=== PATIENT | female | born 1980 | race Hispanic/Latino ===

== ENCOUNTER 2018-08-09 15:42 | Emergency (ER) | payer OTHER ==
[2018-08-09 18:24] LABS: CREATININE 0.7 mg/dL (0.5-1.5); POTASSIUM 3.6 mmol/L (3.5-5.1)
[2018-08-09 18:31] LABS: ALBUMIN 2.7 g/dL (3.5-5.0); BILIRUBIN,DIRECT 0.1 mg/dL (0.0-0.3); BILIRUBIN,TOTAL 0.3 mg/dL (0.2-1.0); TOTAL PROTEIN, SERUM 6.1 g/dL (6.0-8.3)
[2018-08-09 18:34] LABS: BASOPHILS % (AUTO) 0.6 % (0.0-5.0); EOSINOPHILS % (AUTO) 3.3 % (0.0-8.0); HEMATOCRIT 28.7 % (36-48); LYMPHOCYTES % (AUTO) 34.6 % (21.0-51.0); MEAN CORPUSCULAR HEMOGLOBIN 29.9 pg (27.0-33.0); MEAN CORPUSCULAR HGB CONC 33.9 g/dL (32.0-36.0); MEAN CORPUSCULAR VOLUME 88.1 fL (79-99); MONOCYTES % (AUTO) 11.6 % (3.0-13.0); NEUTROPHILS % (AUTO) 49.9 % (40.0-77.0); PLATELET COUNT (AUTO) 167 K/uL (130-400); RED BLOOD CELL COUNT(AUTO) 3.25 MIL/uL (4.00-5.50); RED CELL DISTRIBUTION WIDTH 13.8 % (11.0-15.5); WHITE BLOOD COUNT (AUTO) 5.4 K/uL (4.8-10.8)
[2018-08-09 19:01] LABS: INR 0.95 (0.85-1.15); PARTIAL THROMBOPLASTIN TIME 26.2 SEC (26.3-35.5)
[2018-08-09 19:17] LABS: B-TYPE NATRIURETIC PEPTIDE 46 pg/mL (0-100)
== END 2018-08-09 19:51 | disposition home or self-care (01) ==
LOC: EDH 15:42
DX: R60.0 Localized edema (principal); Z48.01 Encounter for change or removal of surgical wound dressing; M19.90 Unspecified osteoarthritis, unspecified site; Z90.710 Acquired absence of both cervix and uterus; Z98.890 Other specified postprocedural states; Z86.718 Personal history of other venous thrombosis and embolism
CPT/HCPCS: 36415; 80048; 80076; 83880; 84484; 85025; 85610; 85730; 93005; 93970

== ENCOUNTER 2020-04-05 17:50 | Emergency (ER) | payer OTHER ==
[~2020-04-05 17:50] MED LIST: ADAL40KI SQ
[2020-04-05 18:49] LABS: BASOPHILS % (AUTO) 0.6 % (0.0-5.0); EOSINOPHILS % (AUTO) 1.7 % (0.0-8.0); HEMATOCRIT 40.4 % (36-48); LYMPHOCYTES % (AUTO) 36.2 % (21.0-51.0); MEAN CORPUSCULAR HEMOGLOBIN 28.6 pg (27.0-33.0); MEAN CORPUSCULAR HGB CONC 33.4 g/dL (32.0-36.0); MEAN CORPUSCULAR VOLUME 85.6 fL (79-99); MONOCYTES % (AUTO) 6.2 % (3.0-13.0); NEUTROPHILS % (AUTO) 55.1 % (40.0-77.0); PLATELET COUNT (AUTO) 242 K/uL (130-400); RED BLOOD CELL COUNT(AUTO) 4.72 MIL/uL (4.00-5.50); RED CELL DISTRIBUTION WIDTH 12.8 % (11.0-15.5); WHITE BLOOD COUNT (AUTO) 5.4 K/uL (4.8-10.8)
[2020-04-05 19:11] LABS: CREATININE 0.8 mg/dL (0.5-1.5); POTASSIUM 3.6 mmol/L (3.5-5.1)
== END 2020-04-05 19:58 | disposition home or self-care (01) ==
LOC: EDH 17:50 → MERGE 17:50 → EDH 19:58
DX: R60.0 Localized edema (principal); M06.9 Rheumatoid arthritis, unspecified; Z86.718 Personal history of other venous thrombosis and embolism; Z98.890 Other specified postprocedural states; Z90.710 Acquired absence of both cervix and uterus
CPT/HCPCS: 36415; 80048; 85025; 85378; 93971

== ENCOUNTER → 2021-02-20 | Outpatient (CLI) | payer OTHER | END | disposition home or self-care (01) | LOC: RAH 15:08 | PROVIDERS: ATTEND Internal Medicine | DX: R59.0 Localized enlarged lymph nodes (principal) | CPT/HCPCS: 70490 ==

== ENCOUNTER 2023-01-26 18:53 | Emergency (ER) | payer OTHER ==
[~2023-01-26] VITALS: Ht 162.6 cm; Wt 54.4 kg
[2023-01-26 20:03] VITALS: BP 129/77
[2023-01-26] MEDS ORDERED: OSEL75 PO (21:26)
[2023-01-26] MEDS ORDERED: DEXAMETHASONE SOD PHOSPHATE 4 MG/ML 1ML VIAL IM SCH (21:30)
== END 2023-01-26 21:48 | disposition home or self-care (01) ==
LOC: EDH 18:53
DX: J10.1 Influenza due to other identified influenza virus with other respiratory manifestations (principal); Z20.822 Contact with and (suspected) exposure to COVID-19
CPT/HCPCS: 99283; 87635; 87880; 87804 ×2; 96372; J1100; C9803

== ENCOUNTER 2023-07-09 19:47 | Emergency (ER) | payer OTHER ==
[~2023-07-09] VITALS: Ht 154.9 cm; Wt 51.7 kg
[~2023-07-09 19:47] MED LIST changes: +OSEL75 PO
[2023-07-09 20:40] VITALS: BP 125/75; PULSE 69; RESP 18; O2SAT 100
[2023-07-09 21:13] LABS: BASOPHILS # (AUTO) 0.05 K/uL (0.00-0.20); EOSINOPHILS # (AUTO) 0.07 K/uL (0.00-0.70); EOSINOPHILS % (AUTO) 1.3 % (0.0-8.0); HEMATOCRIT 41.1 % (36-48); IMMATURE GRANULOCYTE ABSOLUTE 0.01 K/uL (0-1); LYMPHOCYTES # (AUTO) 2.3 K/uL (1.0-4.8); LYMPHOCYTES % (AUTO) 43.5 % (21.0-51.0); MEAN CORPUSCULAR HEMOGLOBIN 28.8 pg (27.0-33.0); MEAN CORPUSCULAR HGB CONC 33.1 g/dL (32.0-36.0); MEAN CORPUSCULAR VOLUME 87.1 fL (79-99); MONOCYTES # (AUTO) 0.4 K/uL (0.1-1.0); MONOCYTES % (AUTO) 7.2 % (3.0-13.0); NEUTROPHILS # (AUTO) 2.5 K/uL (1.8-7.7); NEUTROPHILS % (AUTO) 46.8 % (40.0-77.0); PLATELET COUNT (AUTO) 237 K/uL (130-400); RED BLOOD CELL COUNT(AUTO) 4.72 MIL/uL (4.00-5.50); RED CELL DISTRIBUTION WIDTH 13.1 % (11.0-15.5); WHITE BLOOD COUNT (AUTO) 5.3 K/uL (4.8-10.8)
[2023-07-09 21:15] LABS: APPEARANCE,URINE CLEAR (CLEAR); BILIRUBIN,URINE NEGATIVE (NEGATIVE); COLOR,URINE LIGHT-YELLOW (YELLOW); GLUCOSE, URINE (UA) NEGATIVE (NEGATIVE); KETONES,URINE 10 mg/dL (NEGATIVE); LEUKOCYTE ESTERASE ,URINE NEGATIVE Leu/uL (NEGATIVE); NITRATE,URINE NEGATIVE (NEGATIVE); OCCULT BLOOD,URINE NEGATIVE (NEGATIVE); PH,URINE 6.5 (5.0-8.0); PROTEIN,URINE NEGATIVE (NEGATIVE)
[2023-07-09 21:16] LABS: ADD UA MICROSCOPIC YES
[2023-07-09 21:17] LABS: MUCUS,URINE RARE LPF (None Seen); SQUAMOUS EPITHELIAL CELL,UR RARE /HPF (0-2)
[2023-07-09 21:23] LABS: CREATININE 0.7 mg/dL (0.5-1.5); POTASSIUM 3.6 mmol/L (3.5-5.1)
[2023-07-09 21:28] LABS: ALBUMIN 4.1 g/dL (3.5-5.0); BILIRUBIN,TOTAL 0.7 mg/dL (0.2-1.0); TOTAL PROTEIN, SERUM 7.8 g/dL (6.0-8.3)
[2023-07-09] MEDS ORDERED: KETOROLAC 30MG VIAL (30MG/ML) IVP ONE (22:00)
[2023-07-09] MEDS ORDERED: ORPHENADRINE CITRATE 30 MG/ML ML IVP ONE (22:00)
[2023-07-09] MEDS ORDERED: IBUP-2070 PO (23:35)
[2023-07-09] MEDS ORDERED: CYCL-309 PO (23:35)
== END 2023-07-09 23:52 | disposition home or self-care (01) ==
LOC: EDH 19:47
DX: M62.838 Other muscle spasm (principal); M19.90 Unspecified osteoarthritis, unspecified site; Z90.710 Acquired absence of both cervix and uterus; Z79.899 Other long term (current) drug therapy; Z98.890 Other specified postprocedural states
CPT/HCPCS: 99284; 96374; 96375; 80053; 85025; 81001; 36415; J1885; J2360

== ENCOUNTER 2024-01-19 18:20 | Emergency (ER) | payer OTHER ==
[~2024-01-19] VITALS: Ht 154.9 cm; Wt 51.3 kg
[~2024-01-19 18:20] MED LIST changes: +CYCL-309 PO; +IBUP-2070 PO
[2024-01-19 18:40] LABS: ADD UA MICROSCOPIC YES; APPEARANCE,URINE CLOUDY (CLEAR); BILIRUBIN,URINE NEGATIVE (NEGATIVE); COLOR,URINE LIGHT-YELLOW (YELLOW); GLUCOSE, URINE (UA) NEGATIVE (NEGATIVE); KETONES,URINE NEGATIVE (NEGATIVE); LEUKOCYTE ESTERASE ,URINE 500 Leu/uL (NEGATIVE); NITRATE,URINE NEGATIVE (NEGATIVE); OCCULT BLOOD,URINE SMALL (NEGATIVE); PH,URINE 5.5 (5.0-8.0); PROTEIN,URINE 20 mg/dL (NEGATIVE); UROBILINOGEN,URINE 0.2 mg/dL (0.2-1.0)
[2024-01-19 18:53] LABS: BACTERIA,URINE FEW /HPF (None Seen); MUCUS,URINE RARE LPF (None Seen); NON-SQUAMOUS EPITHELIAL CELL 2 /HPF (0-2); SQUAMOUS EPITHELIAL CELL,UR RARE /HPF (0-2); UNCLASSIFIED CRYSTAL 2 /HPF (None Seen); WBC CLUMP FEW /HPF (0-1); WBC,URINE >100 /HPF (0-1)
[2024-01-19] MEDS ORDERED: AMOX1TAB16 PO (19:40)
[2024-01-19] MEDS ORDERED: IBUP-2070 PO (19:40)
[2024-01-19] MEDS ORDERED: PHEN-847 PO (19:40)
[2024-01-19 21:07] VITALS: BP 124/74; PULSE 77; RESP 18; O2SAT 100
[2024-01-19] MEDS: ACETAMINOPHEN 500 MG TABLET PO ONE (21:11)
[2024-01-19] MEDS: CEFTRIAXONE 1G VIAL IM ONE (21:11)
[2024-01-19] MEDS: PHENAZOPYRIDINE HCL 200 MG TABLET PO ONE (21:11)
== END 2024-01-19 21:20 | disposition home or self-care (01) ==
LOC: EDH 18:20
DX: N30.01 Acute cystitis with hematuria (principal); M19.90 Unspecified osteoarthritis, unspecified site; Z79.899 Other long term (current) drug therapy; Z90.710 Acquired absence of both cervix and uterus; Z98.890 Other specified postprocedural states
CPT/HCPCS: 99283; 87077; 87088; 87186; 81001; 96372; J0696

== ENCOUNTER → 2024-04-19 | Outpatient (CLI) | payer OTHER ==
[~2024-04-19] MED LIST changes: +AMOX1TAB16 PO; +PHEN-847 PO
== END | disposition home or self-care (01) ==
LOC: RAH 08:39
PROVIDERS: ATTEND Internal Medicine
DX: K82.4 Cholesterolosis of gallbladder (principal); R94.5 Abnormal results of liver function studies
CPT/HCPCS: 76700

== ENCOUNTER 2024-07-08 09:00 | Emergency (ER) | payer SELFPAY ==
[~2024-07-08] VITALS: Ht 154.9 cm; Wt 52.2 kg
[2024-07-08 09:01] VITALS: BP 120/78; PULSE 89; RESP 17; TEMP 98.4; O2SAT 100
[2024-07-08] MEDS: LIDOCAINE HCL 1% 20 ML VIAL INJ SCH (09:26)
[2024-07-08] MEDS: acetaMINOPHEN WITH coDEINE 1 TAB TAB PO ONE (09:26)
[2024-07-08] MEDS ORDERED: DOXY100T2 PO (09:27)
[2024-07-08] MEDS ORDERED: IBUP-2070 PO (09:27)
[2024-07-08] MEDS ORDERED: ACET-66 PO (09:27)
[2024-07-08] MEDS: ADENOSINE 6MG VIAL IV ONE (10:27)
[2024-07-08] MEDS ORDERED: cePHALexin 500 MG CAPSULE PO ONE (11:00)
[2024-07-08] MEDS: NEOMY SULF/BACITRA/POLYMYXIN B 1 EACH PACKET TP ONE (11:37)
== END 2024-07-08 11:56 | disposition home or self-care (01) ==
LOC: EDH 09:00
DX: S81.812A Laceration without foreign body, left lower leg, initial encounter (principal); Z79.899 Other long term (current) drug therapy; Z79.2 Long term (current) use of antibiotics; Z98.890 Other specified postprocedural states; W01.0XXA Fall on same level from slipping, tripping and stumbling without subsequent striking against object, initial encounter; Y93.39 Activity, other involving climbing, rappelling and jumping off; Y92.89 Other specified places as the place of occurrence of the external cause; Y99.8 Other external cause status
CPT/HCPCS: 12002; J0153

== ENCOUNTER 2024-07-22 11:00 | Emergency (ER) | payer SELFPAY ==
[~2024-07-22] VITALS: Ht 154.9 cm; Wt 52.2 kg
[~2024-07-22 11:00] MED LIST changes: +ACET-66 PO; +DOXY100T2 PO
== END 2024-07-22 12:16 | disposition home or self-care (01) ==
LOC: EDH 11:00
DX: S81.812D Laceration without foreign body, left lower leg, subsequent encounter (principal); Z48.02 Encounter for removal of sutures; X58.XXXD Exposure to other specified factors, subsequent encounter
CPT/HCPCS: 99282

== ENCOUNTER 2025-08-31 19:11 | Emergency (ER) | payer BC ==
[~2025-08-31] VITALS: Ht 154.9 cm; Wt 50.8 kg
[~2025-08-31 19:11] MED LIST changes: +IBUP-1492 PO; -IBUP-2070 PO
--- NOTE | 2025-08-31 19:42 | ERN ---
ED Note History of Present Illness Stated Complaint: C/O PAIN WITH BURNING WHEN VOIDING ONSET FRIDAY Chief Complaint: Painful Urination Time Seen by MD: 19:20 Dictation: 44-year-old female presents to ER complaints of urinary symptoms. Patient states has frequency and burning. Patient denies blood in urine, fever back pain Allergies: Coded Allergies: No Known Drug Allergies (Unverified Allergy, Unknown, 04/11/20) Home Meds Active Scripts Phenazopyridine HCl (Pyridium) 200 Mg Tablet, 200 MG PO TID for painful urination for 3 Days, #9 TAB 0 Refills Prov:SHAD SIM [employer]PER[employer] 08/31/25 Nitrofurantoin Macrocrystal (Macrodantin) 100 Mg Cap, 1 CAP PO BID for 7 Days, #14 CAP 0 Refills Prov:SHAD SIM SU[employer] 08/31/25 Acetaminophen (Tylenol) 500 Mg Tab, 500 MG PO Q6HPRN, #30 TAB Prov:RAHEEM CLARKE MD 07/08/24 Ibuprofen (Ibuprofen) 600 Mg Tablet, 600 MG PO Q6H PRN for PAIN, #20 TAB Prov:RAHEEM CLARKE MD 07/08/24 Doxycycline Hyclate (Doxycycline Hyclate) 100 Mg Tablet, 100 MG PO BID, #14 TAB Prov:RAHEEM CLARKE MD 07/08/24 Ibuprofen (Ibuprofen) 600 Mg Tablet, 600 MG PO Q6H PRN for PAIN, #30 TAB Prov:RICH ONEILLP 01/19/24 Phenazopyridine HCl (Pyridium) 200 Mg Tab, 200 MG PO TIDPC for 5 Days, #15 TAB TAKE WITH FOOD TO PREVENT STOMACH UPSET. Prov:RICH ONEILL [employer]PER[employer] 01/19/24 Amoxicillin/Potassium Clav (Amox Tr-K Clv 875-125 mg Tab) 875 Mg-125 Mg Tablet, 1 EACH PO BID for 7 Days, #14 TAB 0 Refills Prov:RICH ONEILL SUPER[employer] 01/19/24 Ibuprofen (Ibuprofen) 600 Mg Tablet, 600 MG PO Q6H PRN for PAIN, #30 TAB 0 Refills Prov:CARMITA PRUITT MD 07/09/23 Cyclobenzaprine HCl (Cyclobenzaprine HCl) 10 Mg Tablet, 10 MG PO TID PRN for PAIN, #15 TAB 0 Refills Prov:CARMITA PRUITT MD 07/09/23 Oseltamivir Phosphate (Tamiflu) 75 Mg Cap, 75 MG PO BID for 5 Days, #10 CAP Prov:RAY ENGLISH 01/26/23 Reported Medications Adalimumab (Humira) 40 Mg/0.8 Ml Kit, 40 MG SQ [id number], KIT 08/05/18 Past Medical History Past Medical History: Other Additional Past Medical Hx: HX OF RA Surgical History: Hysterectomy, Social History: Negative History: Not Applicable Review of System Dictation CONSTITUTIONAL: NEGATIVE FOR FEVER,CHILLS, AND WEIGHT LOSS EYES: NEGATIVE FOR INJURY, PAIN,REDNESS, AND DISCHARGE ENT: NEGATIVE FOR INJURY,PAIN OR SWELLING CARDIOVASCULAR: NEGATIVE FOR CHEST PAIN, PALPITATIONS, AND EDEMA RESPIRATORY: NEGATIVE FOR SHORTNESS OF BREATH, COUGH, WHEEZING, AND PLEURITIC CHEST PAIN ABDOMEN/GI: NEGATIVE FOR ABDOMINAL PAIN, NAUSEA, VOMITING AND DIARRHEA. BACK: NEGATIVE FOR PAIN OR INJURY : Positive pain, dysuria and frequency MS/EXTREMITY: NEGATIVE FOR INJURY AND DEFORMITY SKIN: NEGATIVE FOR RASH, AND DISCOLORATION NEURO: NEGATIVE FOR HEADACHE, WEAKNESS, NUMBNESS, TINGLING, AND SEIZURE PSYCH: NEGATIVE FOR SUICIDE IDEATION, HOMICIDAL IDEATION, AND HALLUCINATIONS ALLERGY/IMMUNOLOGY: NEGATIVE FOR HIVES, RASH, AND ALLERGIES ALL SYSTEMS NEGATIVE, EXCEPT NOTED ABOVE. 13 POINT REVIEW OF SYSTEMS ASSESSED AND ALL NEGATIVE EXCEPT FOR ABOVE. Initial Vital Sign VS Vital Signs Date Time Temp Pulse Resp B/P (MAP) Pulse Ox O2 Delivery O2 Flow Rate FiO2 08/31/25 19:14 97.5 66 18 117/74 98 Room Air 08/31/25 21:25 0 21 Physical Exam Dictation General: awake, alert, NAD Head/Face: Normocephalic, atraumatic Eyes: PERRL, EOMI, vision at baseline ENT: oral cavity clear, TMs clear, no signs of infection Neck: Trachea midline, supple, no nuchal rigidity Cardiovascular: RRR, normal no JVD Respiratory: CTAB, no respiratory distress, No rales or wheezes Abdomen: Soft, non-tender, non-distended, normal bowel sounds, no guarding or rebound. Skin: Warm, dry, normal turgor, no rash MS/Extremity: Pulses equal, no cyanosis, neurovascular intact, FROM Neuro: COAx4, GCS 15, strength 5/5, CN 2-12 intact, normal cerebellar exam, normal gait, Psych: Normal behavior, mood, and affect normal Results (Laboratory/Radiology) Laboratory/Radiology Laboratory Tests Test 08/31/25 19:24 Urine Color COLORLESS (YELLOW) Urine Appearance CLEAR (CLEAR) Urine pH 6.5 (5.0-8.0) Urine Specific Girdler 1.002 (1.001-1.031) Urine Protein NEGATIVE mg/dL (NEGATIVE) Urine Glucose (UA) NEGATIVE mg/dL (NEGATIVE) Urine Ketones NEGATIVE mg/dL (NEGATIVE) Urine Occult Blood NEGATIVE (NEGATIVE) Urine Nitrate NEGATIVE (NEGATIVE) Urine Bilirubin NEGATIVE mg/dL (NEGATIVE) Urine Urobilinogen 0.2 mg/dL (0.2-1.0) Urine Leukocyte Esterase NEGATIVE Alli/uL ED Course ED Course Orders Procedure Category Date Status Time Urinalysis Profile LAB 08/31/25 Complete 19:34 Ceftriaxone 1g Vial PHA 08/31/25 Complete (Rocephine 1g Inj) 20:00 Current Medications Medications (Trade) Dose Ordered Sig/Jayne Route PRN Reason Start Time Stop Time Status Last Admin Dose Admin Ceftriaxone Sodium (ROCEphine 1G INJ) 1 gm ONCE ONCE IM 08/31/25 20:00 08/31/25 20:01 DC 08/31/25 21:27 Vital Signs Date Time Temp Pulse Resp B/P (MAP) Pulse Ox O2 Delivery O2 Flow Rate FiO2 08/31/25 21:25 98.1 64 16 114/68 100 Room Air* 0 21 08/31/25 19:14 97.5 66 18 117/74 98 Room Air Medical Decision Making MDM MDM: Differential diagnosis: UTI, cystitis, pyelonephritis Rationale: Tests considered and ordered secondary to shared decision making include: labs, ECG and radiology Previous outside records reviewed: Old ER visits. Risk of complication and/or morbidity or mortality of patient management: None Medications-Per medication reconciliation Need for hospitalization: Patient does NOT meet criteria for hospitalization. Need for emergency major/minor surgery: No There are no social concerns with this patient. Prescription drug management Prescriptions will include symptomatic care Patient's prior external medical records from other ER visits were reviewed by me as indicated. Prior testing and results from previous visits were reviewed. Prior tests were taken into account with medical decision making and resource utilization, independent historian/historians were used to obtain complete medical history. I independently interpreted the test that were performed, results were reviewed by me and considered findings on radiology if ordered. DX & DISP Disposition: Discharge Departure Impression: Primary Impression: UTI (urinary tract infection) Additional Impression: Dysuria Condition: Stable Scripts Phenazopyridine HCl (Pyridium) 200 Mg Tablet 200 MG PO TID for painful urination for 3 Days, #9 TAB 0 Refills Prov: SHAD SIM 08/31/25 Nitrofurantoin Macrocrystal (Macrodantin) 100 Mg Cap 1 CAP PO BID for 7 Days, #14 CAP 0 Refills Prov: SHAD SIM 08/31/25 Additional Instructions: TAKE MEDICATIONS PRESCRIBED. FOLLOW-UP WITH YOUR PCP IN 24-72 HOURS AND IN THE EVENT IF SYMPTOMS WORSEN OR AN EMERGENCY OVERNIGHT REPORT TO THE ED IMMEDIATELY Referrals: CHANDLER STEVENSON (PCP) ATTESTATION BY PHYSICIAN I PERFORMED THE SUBSTANTIVE PORTION OF THE VISIT. I HAVE REVIEWED AND PERSONALLY MADE AND APPROVED THE MANAGEMENT PLAN THAT IS DOCUMENTED IN THE NOTE BY MYSELF FOR THE A PP. SHAD SIM Aug 31, 2025 19:42 JOSE CARLOS VALDIVIA MD Sep 03, 2025 07:46
[2025-08-31 20:19] LABS: APPEARANCE,URINE CLEAR (CLEAR); GLUCOSE, URINE (UA) NEGATIVE (NEGATIVE); LEUKOCYTE ESTERASE ,URINE NEGATIVE Leu/uL (NEGATIVE); NITRATE,URINE NEGATIVE (NEGATIVE); OCCULT BLOOD,URINE NEGATIVE (NEGATIVE)
[2025-08-31 20:21] LABS: ADD UA MICROSCOPIC NO
[2025-08-31] MEDS ORDERED: PHEN-776 PO (20:42)
[2025-08-31] MEDS ORDERED: NITR-166 PO (20:42)
[2025-08-31 21:25] VITALS: BP 114/68; PULSE 64; RESP 16; TEMP 98.1; O2SAT 100
== END 2025-08-31 21:49 | disposition home or self-care (01) ==
LOC: EDH 19:11
DX: N39.0 Urinary tract infection, site not specified (principal); Z90.710 Acquired absence of both cervix and uterus; Z98.890 Other specified postprocedural states; Z79.899 Other long term (current) drug therapy
CPT/HCPCS: 99284; 81003; 96372; J0696

== ENCOUNTER 2025-09-02 20:00 | Emergency (ER) | payer BC ==
[~2025-09-02] VITALS: Ht 154.9 cm; Wt 52.2 kg
[~2025-09-02 20:00] MED LIST changes: +NITR-108 PO; +PHEN-776 PO
--- NOTE | 2025-09-02 20:25 | ERN ---
General Chief Complaint: Painful Urination Stated Complaint: PAINFUL URINATION Time Seen by MD: 20:03 History of Present Illness Initial Comments Patient comes in with complaint of dysuria. She reports that she does get UTIs in the past that has been resistant. She started having dysuria for the last five days. She was seen here two days ago and did have a urine performed that looked very clear. However patient was quite sure that she was getting an infection. She was given Rocephin and put on Macrobid and azo. She still continues to have symptoms. She did not picker/puller the azo as it was not being covered by insurance so she does not like to take the necessary medicines. She has taken Macrobid but we will like Augmentin which has worked for her in the past she has history of rheumatoid arthritis and is on Humira for the last 10 years but is otherwise healthy. Allergies: Coded Allergies: No Known Drug Allergies (Unverified Allergy, Unknown, 04/11/20) Home Meds Active Scripts Phenazopyridine HCl (Pyridium) 200 Mg Tablet, 200 MG PO TID for painful urination for 3 Days, #9 TAB 0 Refills Prov:SHAD SIMP 08/31/25 Nitrofurantoin Macrocrystal (Macrodantin) 100 Mg Cap, 1 CAP PO BID for 7 Days, #14 CAP 0 Refills Prov:SHAD SIMP 08/31/25 Acetaminophen (Tylenol) 500 Mg Tab, 500 MG PO Q6HPRN, #30 TAB Prov:RAHEEM CLARKE MD 07/08/24 Ibuprofen (Ibuprofen) 600 Mg Tablet, 600 MG PO Q6H PRN for PAIN, #20 TAB Prov:RAHEEM CLARKE MD 07/08/24 Doxycycline Hyclate (Doxycycline Hyclate) 100 Mg Tablet, 100 MG PO BID, #14 TAB Prov:RAHEEM CLARKE MD 07/08/24 Ibuprofen (Ibuprofen) 600 Mg Tablet, 600 MG PO Q6H PRN for PAIN, #30 TAB Prov:RICH ONEILLP 01/19/24 Phenazopyridine HCl (Pyridium) 200 Mg Tab, 200 MG PO TIDPC for 5 Days, #15 TAB TAKE WITH FOOD TO PREVENT STOMACH UPSET. Prov:RICH ONEILL 01/19/24 Amoxicillin/Potassium Clav (Amox Tr-K Clv 875-125 mg Tab) 875 Mg-125 Mg Tablet, 1 EACH PO BID for 7 Days, #14 TAB 0 Refills Prov:RICH ONEILL [employer] JOURNEYMAN 01/19/24 Ibuprofen (Ibuprofen) 600 Mg Tablet, 600 MG PO Q6H PRN for PAIN, #30 TAB 0 Refills Prov:CARMITA PRUITT MD 07/09/23 Cyclobenzaprine HCl (Cyclobenzaprine HCl) 10 Mg Tablet, 10 MG PO TID PRN for PAIN, #15 TAB 0 Refills Prov:CARMITA PRUITT MD 07/09/23 Oseltamivir Phosphate (Tamiflu) 75 Mg Cap, 75 MG PO BID for 5 Days, #10 CAP Prov:RAY ENGLISH V [employer] B[employer] JOURNEYMAN 01/26/23 Reported Medications Adalimumab (Humira) 40 Mg/0.8 Ml Kit, 40 MG SQ [id number], KIT 08/05/18 Past Medical History Past Medical History: Arthritis, Other Medical History Other: HX OF RA Past Surgical History: Hysterectomy, Social History Social History: Negative Female( History) History: Not Applicable ROS Dictation Ten systems reviewed and negative except as noted in HPI Physical Exam Physical Exam Dictation GEN: non toxic, NAD HEENT: atrumatic, PERRL, EOMI, conjunctivae normal NECK: Soft supple nontender Heart RRR, no murmurs Chest: No deformity Lungs: Lungs clear to auscultation Ab: Soft nondistended nontender Back: No midline step-offs. No gross deformity. No CVA tenderness : m/s: Moving all four extremities. No gross deformity Neuro: CN 2-12 intact. Moving all four extremities. Psych: Cooperative Results Laboratory and Microbiology Lab and Micro Result Laboratory Tests Test 09/02/25 20:05 Urine Color LIGHT-YELLOW (YELLOW) Urine Appearance CLEAR (CLEAR) Urine pH 6.5 (5.0-8.0) Urine Specific Dante 1.012 (1.001-1.031) Urine Protein NEGATIVE mg/dL (NEGATIVE) Urine Glucose (UA) NEGATIVE mg/dL (NEGATIVE) Urine Ketones NEGATIVE mg/dL (NEGATIVE) Urine Occult Blood NEGATIVE (NEGATIVE) Urine Nitrate NEGATIVE (NEGATIVE) Urine Bilirubin NEGATIVE mg/dL (NEGATIVE) Urine Urobilinogen 0.2 mg/dL (0.2-1.0) Urine Leukocyte Esterase NEGATIVE Alli/uL Urine RBC 0-1 /HPF (0-1) Urine WBC 0-1 /HPF (0-1) Urine Squamous Epithelial Cells RARE /HPF (0-2) Urine Bacteria RARE /HPF (None Seen) Urine HCG, Qualitative NEGATIVE (NEGATIVE) Labs Reviewed?: Yes MDM Multiple differentials considered. Previous urine was clear low culture results available although patient does have a lot of dysuria. We will check urine here again although patient now has been on partial treatment. Patient does report history of some resistance in the past to Bactrim but indicated success with Augmentin which she would like. I did review urine culture from last year. It was E coli resistant to Bactrim but sensitive to everything else. I did explain the urine results from two days ago as well as today and low suspicion. In further discussing with the patient patient was actually very concerned that nitrofurantoin that she was prescribed two days ago was the same as Bactrim which she knew she was resistant to in the past. I did explain that they are different antibiotics in the last culture results we have for her did show sensitivity to nitrofurantoin. I think this is a primary cat driver for patient's return as she had believe that she was prescribed Bactrim two days ago. I did also let her noted picker/puller the azo has he can help with the dysuria. Patient will follow up with primary care physician if she needs per patient. ED Course Orders Procedure Category Date Status Time Urinalysis LAB 09/02/25 Complete W/Microscopic 20:04 ,Urine Test LAB 09/02/25 Complete 20:04 Vital Signs Date Time Temp Pulse Resp B/P (MAP) Pulse Ox O2 Delivery O2 Flow Rate FiO2 09/02/25 20:04 98.4 84 18 144/84 98 DX & DISP Disposition: Discharge Departure Impression: Primary Impression: Dysuria Condition: Stable Referrals: SELF,REFERRAL (PCP) NAM OCHOA MD Sep 02, 2025 20:25
[2025-09-02 20:27] LABS: APPEARANCE,URINE CLEAR (CLEAR); GLUCOSE, URINE (UA) NEGATIVE (NEGATIVE); LEUKOCYTE ESTERASE ,URINE NEGATIVE Leu/uL (NEGATIVE); NITRATE,URINE NEGATIVE (NEGATIVE); OCCULT BLOOD,URINE NEGATIVE (NEGATIVE); SQUAMOUS EPITHELIAL CELL,UR RARE /HPF (0-2)
[2025-09-02 20:37] LABS: HCG,QUALITATIVE URINE NEGATIVE (NEGATIVE)
[2025-09-02 21:40] VITALS: BP 132/74; PULSE 78; RESP 18; TEMP 98.5; O2SAT 98
== END 2025-09-02 21:43 | disposition home or self-care (01) ==
LOC: EDH 20:00
DX: R30.0 Dysuria (principal); M06.9 Rheumatoid arthritis, unspecified; M19.90 Unspecified osteoarthritis, unspecified site; Z87.440 Personal history of urinary (tract) infections; Z90.710 Acquired absence of both cervix and uterus; Z98.890 Other specified postprocedural states; Z79.899 Other long term (current) drug therapy
CPT/HCPCS: 81001; 81025; 99283